=== PATIENT | female | born 1970 ===

== ENCOUNTER 2016-12-09 11:42 | Emergency (ER) | payer MEDICAID, OTHER ==
[2016-12-09 12:02] VITALS: BMI 38.7
[2016-12-09 12:07] VITALS: RESP 18; TEMP 98.6
--- NOTE | 2016-12-09 13:03 | RAD ---
PROCEDURE: Left Knee Radiographs. HISTORY: Pain. COMPARISON: None. FINDINGS: BONES: Normal. No fracture. JOINTS: Normal. No osteoarthritis. JOINT EFFUSION: None. OTHER FINDINGS: None. IMPRESSION: Normal radiographs of the left knee.
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
[2016-12-09 14:02] VITALS: BP 116/77; PULSE 72; O2SAT 100
== END 2016-12-09 14:01 | disposition home or self-care (01) ==
LOC: ED 11:42
DX: M25.562 Pain in left knee (principal)

== ENCOUNTER 2017-11-02 15:36 | Emergency (ER) | payer MEDICAID ==
[2017-11-02 15:37] VITALS: BMI 38.7
[2017-11-02 15:54] VITALS: O2SAT 98
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
[2017-11-02 16:38] LABS: BASO # 0.01 K/mm3 (0.0-2.0); BASO % 0.1 % (0.0-3.0); EOS # 0.2 (0.0-0.7); EOS % 2.3 % (1.5-5.0); GRAN # 4.54 (1.4-6.5); GRAN % 61.2 % (50.0-68.0); HEMOGLOBIN 12.9 g/dL (12.0-16.0); LYMPH # 2.1 (1.2-3.4); LYMPH % 28.2 % (22.0-35.0); MEAN CELL VOLUME 85.9 fl (80.0-105.0); MEAN CORPUSCULAR HEMOGLOBIN 29.4 pg (25.0-35.0); MEAN CORPUSCULAR HGB CONC 34.2 g/dl (31.0-37.0); MEAN PLATELET VOLUME 9.6 fl (7.0-11.0); MONO # 0.6 (0.1-0.6); MONO % 8.2 % (1.0-6.0); RBC 4.39 10^6/uL (3.5-6.1); RED CELL DISTRIBUTION WIDTH 13.9 % (11.5-14.5); WHITE BLOOD COUNT 7.4 10^3/ul (4.5-11.0)
[2017-11-02 16:40] LABS: URINE BILIRUBIN NEGATIVE (NEGATIVE); URINE BLOOD SMALL (NEGATIVE); URINE GLUCOSE (UA) NEGATIVE (NEGATIVE); URINE LEUKOCYTE ESTERASE LARGE Leu/uL (NEGATIVE); URINE PROTEIN NEGATIVE mg/dL (<30 mg/dL); URINE UROBILINOGEN 0.2 E.U./dL (<1 E.U./dL)
[2017-11-02 16:44] LABS: INR 1.08; PARTIAL THROMBOPLASTIN TIME 29.7 Seconds (25.1-36.5); PROTHROMBIN TIME 12.3 SECONDS (9.4-12.5); URINE APPEARANCE CLEAR (CLEAR); URINE COLOR LIGHT YELLOW (YELLOW)
[2017-11-02 16:55] LABS: ALB/GLOB RATIO 1.1 (1.1-1.8); ALBUMIN 4.1 g/dL (3.0-4.8); ALT/SGPT 16 U/L (7-56); AST/SGOT 18 U/L (14-36); BLOOD UREA NITROGEN 12 mg/dL (7-21); CALCIUM 9.3 mg/dL (8.4-10.5); GFR NON-AFRICAN AMERICAN > 60
[2017-11-02 16:58] LABS: URINE BACTERIA MOD (NEG)
[2017-11-02] MEDS ORDERED: cefTRIAXone 1 gm 1 GM/100 ML BAG IVPB STA (17:01)
[2017-11-02 17:09] LABS: BARBITURATES, UR NEGATIVE (NEGATIVE); BENZODIAZEPINES, UR NEGATIVE (NEGATIVE); OPIATES, UR NEGATIVE (NEGATIVE); PHENCYCLIDINE, UR NEGATIVE (NEGATIVE)
[2017-11-02 17:13] LABS: TROPONIN I < 0.01 ng/mL
[2017-11-02 18:12] VITALS: BP 114/69; PULSE 58; RESP 18; TEMP 98
--- NOTE | 2017-11-03 09:39 | RAD ---
Date of service: 11/02/2017 HISTORY: palptations COMPARISON: No prior. FINDINGS: LUNGS: No active pulmonary disease. PLEURA: No significant pleural effusion identified, no pneumothorax apparent. CARDIOVASCULAR: Normal. OSSEOUS STRUCTURES: No significant abnormalities. VISUALIZED UPPER ABDOMEN: Normal. OTHER FINDINGS: None. IMPRESSION: No active disease.
--- NOTE | 2017-11-03 11:24 | CARD ---
APPROVED REPORT Date of service: 11/02/2017 EKG Measurement Heart [id number] [place] [id number] <Conclusion> Normal sinus rhythm Normal ECG
--- NOTE | 2017-11-03 11:24 | CARD ---
APPROVED REPORT Date of service: 11/02/2017 EKG Measurement Heart [id number] [id number] <Conclusion> Poor data quality, interpretation may be adversely affected Normal sinus rhythm with sinus arrhythmia Normal ECG
== END 2017-11-02 18:10 | disposition home or self-care (01) ==
LOC: ED 15:36
DX: N39.0 Urinary tract infection, site not specified (principal); R00.2 Palpitations; D57.3 Sickle-cell trait
CPT/HCPCS: 71045; 80053; 80324; 80345; 80346; 80349; 80353; 80358; 80361; 81001; 82550; 83615; 83735; 83992; 84484; 84703; 85025; 85610; 85730; 87086; 93005; 96365; 99284; J0696

== ENCOUNTER 2018-06-02 16:40 | Emergency (ER) | payer MEDICAID ==
[2018-06-02 16:41] VITALS: BMI 38.7
[2018-06-02] MEDS ORDERED: Sodium Chloride 0.9% 1,000 ML IV STA (17:02)
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
[2018-06-02 17:05] VITALS: RESP 18
[2018-06-02 17:36] LABS: URINE BILIRUBIN NEGATIVE (NEGATIVE); URINE BLOOD SMALL (NEGATIVE); URINE GLUCOSE (UA) NEGATIVE (NEGATIVE); URINE LEUKOCYTE ESTERASE NEGATIVE Leu/uL (NEGATIVE); URINE PROTEIN TRACE mg/dL (<30 mg/dL); URINE UROBILINOGEN 0.2 E.U./dL (<1 E.U./dL)
[2018-06-02 17:37] LABS: URINE APPEARANCE CLEAR (CLEAR); URINE COLOR YELLOW (YELLOW)
[2018-06-02 17:54] LABS: VENOUS BLOOD GAS BASE EXCESS -1.3 mmol/L (0.0-2.0); VENOUS BLOOD GAS PO2 29 mm/Hg (30-55); VENOUS BLOOD PH 7.36 (7.32-7.43)
[2018-06-02 18:05] LABS: URINE EPITHELIAL CELLS 0 - 2 /hpf (0-5)
[2018-06-02 18:17] LABS: BASO # 0.01 K/mm3 (0.0-2.0); BASO % 0.2 % (0.0-3.0); EOS % 0.3 % (1.5-5.0); HEMOGLOBIN 14.7 g/dL (12.0-16.0); LYMPH # 0.7 (1.2-3.4); LYMPH % 10.2 % (22.0-35.0); MEAN CELL VOLUME 89.2 fl (80.0-105.0); MEAN CORPUSCULAR HGB CONC 33.6 g/dl (31.0-37.0); MEAN PLATELET VOLUME 9.6 fl (7.0-11.0); MONO # 0.5 (0.1-0.6); MONO % 7.5 % (1.0-6.0); RBC 4.9 10^6/uL (3.5-6.1); RED CELL DISTRIBUTION WIDTH 14.3 % (11.5-14.5); WHITE BLOOD COUNT 6.4 10^3/uL (4.5-11.0)
[2018-06-02 18:22] LABS: ALB/GLOB RATIO 0.9 (1.1-1.8); ALBUMIN 4.1 g/dL (3.0-4.8); ALT/SGPT 11 U/L (7-56); AST/SGOT 20 U/L (14-36); BLOOD UREA NITROGEN 9 mg/dL (7-21); GFR NON-AFRICAN AMERICAN > 60; INR 1.24; LIPASE 27 U/L (23-300); PARTIAL THROMBOPLASTIN TIME 32.8 Seconds (26.9-38.3); PROTHROMBIN TIME 13.8 SECONDS (9.4-12.5)
[2018-06-02 18:33] LABS: TROPONIN I < 0.01 ng/mL
[2018-06-02 18:45] VITALS: TEMP 98.5; O2SAT 98
--- NOTE | 2018-06-02 19:15 | CARD ---
APPROVED REPORT Date of service: 06/02/2018 EKG Measurement Heart [id number] <Conclusion> Normal sinus rhythm T wave abnormality, consider lateral ischemia Abnormal ECG
[2018-06-02 20:52] VITALS: BP 130/70; PULSE 88
--- NOTE | 2018-06-03 08:17 | CT ---
Date of service: 06/02/2018 PROCEDURE: CT Abdomen and Pelvis with contrast HISTORY: vomiting, diarrhea, fever, RLQ pain COMPARISON: None. TECHNIQUE: Contrast dose: Radiation dose: Total exam DLP = 1118.91 mGy-cm. This CT exam was performed using one or more of the following dose reduction techniques: Automated exposure control, adjustment of the mA and/or kV according to patient size, and/or use of iterative reconstruction technique. FINDINGS: LOWER THORAX: Unremarkable. LIVER: Multiple hepatic cysts. GALLBLADDER AND BILE DUCTS: Unremarkable. PANCREAS: Unremarkable. No gross lesion or ductal dilatation. SPLEEN: Unremarkable. ADRENALS: Unremarkable. No mass. KIDNEYS AND URETERS: Bilateral renal cysts.. No hydronephrosis. No solid mass. VASCULATURE: Unremarkable. No aortic aneurysm. No aortic atherosclerotic calcification or mural plaque present. BOWEL: Fluid noted throughout the colon compatible with diarrhea.. No obstruction. No gross mural thickening. APPENDIX: Normal appendix. PERITONEUM: Unremarkable. No free fluid. No free air. LYMPH NODES: Unremarkable. No enlarged lymph nodes. BLADDER: Unremarkable. REPRODUCTIVE: Unremarkable. BONES: No acute fracture. OTHER FINDINGS: None. IMPRESSION: Bilateral renal cysts and hepatic cyst. Fluid noted throughout the colon; correlate for diarrhea.
== END 2018-06-02 21:01 | disposition home or self-care (01) ==
LOC: ED 16:40
DX: K52.9 Noninfective gastroenteritis and colitis, unspecified (principal); D57.3 Sickle-cell trait
CPT/HCPCS: 74177; 80053; 81001; 81025; 82550; 82803; 83615; 83690; 84484; 85025; 85610; 85730; 87086; 93005; 99284; J7030; Q9967